=== PATIENT | female | born 1985 | race Caucasian/White ===

== ENCOUNTER → 2022-02-23 | Outpatient (CLI) | payer BC ==
[~2022-02-23] MED LIST: PRENATAL VITAMI1 TA5 PO
== END ==
LOC: COL.LAB 16:36
DX: J30.1 Allergic rhinitis due to pollen (principal)

== ENCOUNTER → 2022-07-13 | Outpatient (CLI) | payer BC | LOC: COL.RAD 13:01 | DX: R06.02 Shortness of breath (principal) | CPT/HCPCS: Q9967 ==